=== PATIENT | female | born 1995 | race Caucasian/White ===

== ENCOUNTER 2016-10-05 13:11 | Emergency (ER) | payer OTHER ==
[~2016-10-05 13:11] MED LIST: CELEBREX; CELEBREX100 MG PO; CLEOCIN HCL300 M1 PO; ENBREL50 MG/M1 SQ; FOLIC ACID1 MG PO; H PO; HM FOLIC ACID0.4 MG PO; METHOTREXATE; METHOTREXATE2.5 MG PO; NORCO 7.5/325 T1 TAB PO; [UNRECOGNIZED DRUG - OTHER]; birth control
== END 2016-10-05 17:34 ==
LOC: EDMED 13:11
DX: K21.9 Gastro-esophageal reflux disease without esophagitis (principal); Z90.49 Acquired absence of other specified parts of digestive tract; Z79.899 Other long term (current) drug therapy